=== PATIENT | female | born 1965 | race Caucasian/White ===

== ENCOUNTER → 2016-11-21 | Outpatient (CLI) | payer OTHER ==
--- NOTE | 2016-11-21 13:32 | US ---
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 No increased velocities. No significant stenosis. IMPRESSION: No hemodynamic significant stenosis of the proximal internal carotid arteries bilaterall y by Doppler criteria, an indirect measurement of carotid stenosis
--- NOTE | 2016-11-21 13:39 | CT ---
EXAMINATION TYPE: CT brain wo/w con DATE OF EXAM: 11/21/2016 1:29 PM COMPARISON: NONE HISTORY: Hemispheric Carotid Artery Syndrome CT DLP: 2446 mGycm Automated exposure control for dose reduction was used. CONTRAST: CT scan of the head is performed without and with IV Contrast, patient injected with 100 ml mL of Omn ipaque 300. FINDINGS: Central structures are midline. There is no evidence of hydrocephalus. No acute focal lesion, mass ef fect or midline shift is seen. I do not see evidence of intracranial blood. Following intravenous administration of contrast, I do not see evidence of abnormal enhancement. There've been previous [place] procedures involving both maxillary sinuses. There is minor mucos al thickening involving the left sphenoid sinus and also the ethmoid air cells. The mastoid air cells appear clear. IMPRESSION: 1. NO ACUTE INTRACRANIAL ABNORMALITY. 2. POSTSURGICAL CHANGE. 3. MILD MUCOPERIOSTEAL THICKENING INVOLVING THE LEFT SPHENOID AND ETHMOID AIR CELLS.
--- NOTE | 2016-12-01 10:55 | MM ---
Reason for exam: screening (asymptomatic). Last mammogram was performed 2 years and 3 months ago. History: Family history of premenopausal breast cancer in mother at age 33. Benign US right guided mammotome of the right breast, September 16, 2006. Reductions of both breasts, 2001. Physical Findings: A clinical breast exam by your physician is recommended on an annual basis and results should be correlated with mammographic findings. MG 3D Screening Mammo W/Cad Bilateral CC and MLO view(s) were taken. Prior study comparison: March 21, 2015, mammogram, performed at [facility]. August 28, 2014, bilateral MG screening mammo w CAD. The breast tissue is almost entirely fat. No significant changes when compared with prior studies. ASSESSMENT: Negative, BI-RAD 1 RECOMMENDATION: Routine screening mammogram of both breasts in 1 year.
== END | disposition home or self-care (01) ==
LOC: RADUSMAIN 12:16
PROVIDERS: ATTEND Pediatrics
DX: Z12.31 Encounter for screening mammogram for malignant neoplasm of breast (principal); G45.1 Carotid artery syndrome (hemispheric); Z98.890 Other specified postprocedural states
CPT/HCPCS: 77063; 93880; 70470; G0202; Q9967

== ENCOUNTER 2016-11-28 11:06 | Day surgery (SDC) | payer OTHER ==
[2016-11-26 16:14] VITALS: BMI 32.1
[~2016-11-28 11:06] MED LIST: LACTATED RINGERS 1,000 ML IV SCH
[2016-11-28 12:42] VITALS: TEMP 98
[2016-11-28] MEDS ORDERED: LIDOCAINE 1% 20 ML VIAL (10MG/ML) FOR IV START INTRADERMA ONE (12:52)
[2016-11-28] MEDS ORDERED: PROPOFOL 10 MG/ML 20 ML VIAL IV ONE (13:00)
--- NOTE | 2016-11-28 13:10 | P.PCN ---
Date of Procedure: 11/28/16 Procedure(s) Performed: BRIEF HISTORY: Patient is a 51-year-old pleasant 8 female, scheduled for an elective colonoscopy as a part of screening for colorectal neoplasia. PROCEDURE PERFORMED: Colonoscopy. PREOPERATIVE DIAGNOSIS: Screening for colon cancer. IV sedation per Anesthesia. PROCEDURE: After informed consent was obtained, the patient, was brought into the endoscopy unit. IV sedation was administered by Anesthesia under continuous monitoring. Digital rectal examination was normal. Initially the Olympus CF-160 flexible video colonoscope was then inserted in the rectum, gradually advanced into the cecum without any difficulty. Careful examination was performed as the scope was gradually being withdrawn. Ileocecal valve and the appendiceal orifice were visualized and appeared normal. Prep was excellent. Mucosa of the cecum, ascending colon, transverse colon, descending colon, sigmoid colon, and rectum appeared normal. Retroflexion was performed in the rectum and no lesions were seen. The patient tolerated the procedure well. IMPRESSION: Normal-appearing colon from rectum to cecum with no evidence of colorectal neoplasia. RECOMMENDATIONS: Findings of this examination were discussed with the patient as well as her family. She was advised to have a repeat screening colonoscopy in 10 years.
[2016-11-28] MEDS ORDERED: IV FLUID CONTINUATION 1,000 ML IV ONE (13:14)
[2016-11-28 13:47] VITALS: BP 128/78; PULSE 82; RESP 18
== END 2016-11-28 14:00 | disposition home or self-care (01) ==
LOC: ORWHC2ENDO 11:06
PROVIDERS: ATTEND Internal Medicine Gastroenterology
DX: Z12.11 Encounter for screening for malignant neoplasm of colon (principal); I10 Essential (primary) hypertension; Z79.899 Other long term (current) drug therapy
CPT/HCPCS: 81025; J2704; G0121

== ENCOUNTER → 2017-11-24 | Outpatient (CLI) | payer OTHER ==
--- NOTE | 2017-11-26 12:57 | MM ---
Reason for exam: screening (asymptomatic). Last mammogram was performed 1 year ago. History: Family history of premenopausal breast cancer in mother at age 33. Benign US right guided mammotome of the right breast, September 16, 2006. Reductions of both breasts, 2001. Physical Findings: A clinical breast exam by your physician is recommended on an annual basis and results should be correlated with mammographic findings. MG 3D Screening Mammo W/Cad Bilateral CC and MLO view(s) were taken. Prior study comparison: November 21, 2016, bilateral MG 3d screening mammo w/cad. March 21, 2015, mammogram, performed at [facility]. There are scattered fibroglandular densities. Previous mammotome biopsy in the right breast. Global asymmetry right upper outer quadrant is stable. No significant changes when compared with prior studies. ASSESSMENT: Negative, BI-RAD 1 RECOMMENDATION: Routine screening mammogram of both breasts in 1 year.
== END | disposition home or self-care (01) ==
LOC: RADMAMWWP 13:34
PROVIDERS: ATTEND Obstetrics & Gynecology
DX: Z12.31 Encounter for screening mammogram for malignant neoplasm of breast (principal); Z80.3 Family history of malignant neoplasm of breast
CPT/HCPCS: 77063; 77067

== ENCOUNTER → 2019-01-20 | Outpatient (CLI) | payer OTHER ==
--- NOTE | 2019-01-21 08:57 | MM ---
Reason for exam: screening (asymptomatic). Last mammogram was performed 1 year and 2 months ago. History: Family history of premenopausal breast cancer in mother at age 33. Benign US right guided mammotome of the right breast, September 16, 2006. Reductions of both breasts, 2001. Physical Findings: A clinical breast exam by your physician is recommended on an annual basis and results should be correlated with mammographic findings. MG 3D Screening Mammo W/Cad Bilateral CC and MLO view(s) were taken. Prior study comparison: November 24, 2017, bilateral MG 3d screening mammo w/cad. November 21, 2016, bilateral MG 3d screening mammo w/cad. There are scattered fibroglandular densities. There is no discrete abnormality. No significant changes when compared with prior studies. ASSESSMENT: Negative, BI-RAD 1 RECOMMENDATION: Routine screening mammogram of both breasts in 1 year.
== END | disposition home or self-care (01) ==
LOC: RADMAMWWP 14:23
PROVIDERS: ATTEND Family Medicine
DX: Z12.31 Encounter for screening mammogram for malignant neoplasm of breast (principal)
CPT/HCPCS: 77063; 77067

== ENCOUNTER → 2019-07-01 | Outpatient (CLI) | payer OTHER ==
--- NOTE | 2019-07-01 11:23 | XR ---
EXAMINATION TYPE: XR chest 2V DATE OF EXAM: 07/01/2019 COMPARISON: 10/09/2015 TECHNIQUE: PA and lateral views submitted. HISTORY: Shortness of breath FINDINGS: The lungs are clear and there is no pneumothorax, pleural effusion, or focal pneumonia. Hypertrophi c and degenerative change of the spine. No overt failure. IMPRESSION: 1. No acute process.
== END | disposition home or self-care (01) ==
LOC: RADXRYALE 11:01
PROVIDERS: ATTEND Pediatrics
DX: J45.901 Unspecified asthma with (acute) exacerbation (principal)
CPT/HCPCS: 71046

== ENCOUNTER 2020-02-28 08:52 | Emergency (ER) | payer OTHER ==
[2020-02-28 08:57] VITALS: TEMP 97.8
[2020-02-28] MEDS ORDERED: IPRATROPIUM-ALBUTEROL 3 ML NEB INHALATION STA (09:03)
[2020-02-28] MEDS ORDERED: SODIUM CHLORIDE 0.9% 500 ML 500 ML IV STA (09:03)
[2020-02-28] MEDS ORDERED: methylPREDNISolone SOD SUCCI 125 MG/2 ML VIAL IV STA (09:03)
--- NOTE | 2020-02-28 09:12 | ED ---
SOB HPI - General Chief Complaint: Shortness of Breath Stated Complaint: SOB/asthma Time Seen by Provider: 02/28/20 08:58 Source: patient, RN notes reviewed Mode of arrival: ambulatory Limitations: no limitations - History of Present Illness Initial Comments: This a 54-year-old female presents emergency Department chief complaint of shortness of breath. She's been having increasing symptoms over the last 1 week. She does admit that she has a history of asthma and has been using her inhaler more than usual. She denies fever, chills, productive cough. She states she has a dry hacking cough and mild nasal congestion associated with her seasonal ALLERGIES. Denies any known sick contacts. Denies chest pain or chest tightness. She's had no mental leg pain leg swelling. Patient does admit that she felt like this before with her asthma exacerbations. - Related Data Home Medications Medication Instructions Recorded Confirmed Albuterol Inhaler (Mhu) [Ventolin 1 - 2 puff INHALATION Q6HR PRN 11/26/16 11/28/16 Hfa Inhaler] Fluticasone Nasal [place] [Flonase 2 spr EA NOSTRIL HS 11/26/16 11/28/16 Nasal [place]] Lisinopril [Zestril] 20 mg PO HS 11/26/16 11/28/16 Loratadine [Claritin] 10 mg PO DAILY 11/26/16 11/28/16 Previous Rx's Medication Instructions Recorded Albuterol Nebulized [Ventolin 2.5 mg INHALATION Q4H PRN #50 nebu 02/28/20 Nebulized] predniSONE 50 mg PO DAILY #5 tab 02/28/20 Allergies Allergy/AdvReac Type Severity Reaction Status Date / Time No Known Allergies Allergy Verified 02/28/20 08:57 Review of Systems ROS Statement: Those systems with pertinent positive or pertinent negative responses have been documented in the HPI. ROS Other: All systems not noted in ROS Statement are negative. Past Medical History Past Medical History: Asthma, CVA/TIA, Hypertension Additional Past Medical History / Comment(s): 3 ARTERIES IN HEART ONE IS SMALL, ONE IS LEAKING-CONGENTIAL DEFECT, STATES TIA 2 WEEKS AGO WHEN SHE STOPPED HER BP MEDICATION. History of Any Multi-Drug Resistant Organisms: None Reported Past Surgical History: Adenoidectomy, Breast Surgery, Section, Heart Catheterization, Tubal Ligation Additional Past Surgical History / Comment(s): D & C, X3. BREAST REDUCTION Past Anesthesia/Blood Transfusion Reactions: No Reported Reaction, Motion Sickness Past Psychological History: No Psychological Hx Reported Smoking Status: Former smoker Past Alcohol Use History: Occasional Past Drug Use History: None Reported - Past Family History Mother Family Medical History: Cancer Additional Family Medical History / Comment(s): BREAST CANCER Father Family Medical History: Cancer Additional Family Medical History / Comment(s): LUNG CANCER General Exam Limitations: no limitations General appearance: alert, in no apparent distress Head exam: Present: atraumatic, normocephalic, normal inspection Eye exam: Present: normal appearance, PERRL, EOMI. Absent: scleral icterus, conjunctival injection, periorbital swelling ENT exam: Present: normal exam, normal oropharynx, mucous membranes moist Neck exam: Present: normal inspection, full ROM. Absent: tenderness, meningismus, lymphadenopathy Respiratory exam: Present: respiratory distress (Mild), wheezes (Bilateral throughout). Absent: normal lung sounds bilaterally, rales, rhonchi, stridor, accessory muscle use Cardiovascular Exam: Present: normal rhythm, tachycardia, normal heart sounds. Absent: systolic murmur, diastolic murmur, rubs, gallop, clicks GI/Abdominal exam: Present: soft, normal bowel sounds. Absent: distended, tenderness, guarding, rebound, rigid Extremities exam: Absent: pedal edema Neurological exam: Present: alert, oriented X3 Skin exam: Present: warm, dry, intact, normal color. Absent: rash Course Vital Signs 02/28/20 02/28/20 02/28/20 08:55 09:03 09:16 Temperature 97.8 F Pulse Rate 106 H 91 Respiratory 22 24 22 Rate Blood Pressure 160/66 133/85 O2 Sat by Pulse 97 98 Oximetry 02/28/20 02/28/20 02/28/20 09:19 09:42 10:21 Temperature Pulse Rate 92 94 99 Respiratory Rate Blood Pressure O2 Sat by Pulse Oximetry 02/28/20 10:46 Temperature Pulse Rate 100 Respiratory Rate Blood Pressure O2 Sat by Pulse Oximetry Medical Decision Making - Medical Decision Making 54-year-old female presented for shortness of breath. Patient's shortness breath related to Asthma x-rays negative patient feels greatly improved after mu ltiple breathing treatments, steroids. Patient was comfortable discharged with close follow-up return parameters were discussed. - Lab Data Result diagrams: 02/28/20 09:09 02/28/20 09:09 Lab Results 02/28/20 02/28/20 02/28/20 Range/Units 09:09 09:09 09:09 WBC 6.8 (3.8-10.6) k/uL RBC 4.68 (3.80-5.40) m/uL Hgb 14.6 (11.4-16.0) gm/dL Hct 43.2 (34.0-46.0) % MCV 92.3 (80.0-100.0) fL MCH 31.2 (25.0-35.0) pg MCHC 33.7 (31.0-37.0) g/dL RDW 12.9 (11.5-15.5) % Plt Count 231 (150-450) k/uL Neutrophils % 69 % Lymphocytes % 19 % Monocytes % 5 % Eosinophils % 4 % Basophils % 1 % Neutrophils # 4.7 (1.3-7.7) k/uL Lymphocytes # 1.3 (1.0-4.8) k/uL Monocytes # 0.3 (0-1.0) k/uL Eosinophils # 0.3 (0-0.7) k/uL Basophils # 0.0 (0-0.2) k/uL Sodium 139 (137-145) mmol/L Potassium 3.8 (3.5-5.1) mmol/L Chloride 106 (98-107) mmol/L Carbon Dioxide 22 (22-30) mmol/L Anion Gap 11 mmol/L BUN 14 (7-17) mg/dL Creatinine 0.73 (0.52-1.04) mg/dL Est GFR (CKD-EPI)AfAm >90 (>60 ml/min/1.73 sqM) Est GFR (CKD-EPI)NonAf >90 (>60 ml/min/1.73 sqM) Glucose 115 H (74-99) mg/dL Plasma Lactic Acid Ryan 2.7 H* (0.7-2.0) mmol/L Calcium 9.8 (8.4-10.2) mg/dL Magnesium 1.6 (1.6-2.3) mg/dL Total Bilirubin 0.6 (0.2-1.3) mg/dL AST 28 (14-36) U/L ALT 24 (4-34) U/L Alkaline Phosphatase 78 (38-126) U/L Troponin I (0.000-0.034) ng/mL Total Protein 7.2 (6.3-8.2) g/dL Albumin 4.5 (3.5-5.0) g/dL 02/28/20 Range/Units 09:09 WBC (3.8-10.6) k/uL RBC (3.80-5.40) m/uL Hgb (11.4-16.0) gm/dL Hct (34.0-46.0) % MCV (80.0-100.0) fL MCH (25.0-35.0) pg MCHC (31.0-37.0) g/dL RDW (11.5-15.5) % Plt Count (150-450) k/uL Neutrophils % % Lymphocytes % % Monocytes % % Eosinophils % % Basophils % % Neutrophils # (1.3-7.7) k/uL Lymphocytes # (1.0-4.8) k/uL Monocytes # (0-1.0) k/uL Eosinophils # (0-0.7) k/uL Basophils # (0-0.2) k/uL Sodium (137-145) mmol/L Potassium (3.5-5.1) mmol/L Chloride (98-107) mmol/L Carbon Dioxide (22-30) mmol/L Anion Gap mmol/L BUN (7-17) mg/dL Creatinine (0.52-1.04) mg/dL Est GFR (CKD-EPI)AfAm (>60 ml/min/1.73 sqM) Est GFR (CKD-EPI)NonAf (>60 ml/min/1.73 sqM) Glucose (74-99) mg/dL Plasma Lactic Acid Ryan (0.7-2.0) mmol/L Calcium (8.4-10.2) mg/dL Magnesium (1.6-2.3) mg/dL Total Bilirubin (0.2-1.3) mg/dL AST (14-36) U/L ALT (4-34) U/L Alkaline Phosphatase (38-126) U/L Troponin I <0.012 (0.000-0.034) ng/mL Total Protein (6.3-8.2) g/dL Albumin (3.5-5.0) g/dL Disposition Clinical Impression: Acute asthma exacerbation Disposition: HOME SELF-CARE Condition: Stable Instructions (If sedation given, give patient instructions): Asthma (ED) Additional Instructions: Please return to the Emergency Department if symptoms worsen or any other concerns. Prescriptions: predniSONE 50 mg PO DAILY #5 tab Albuterol Nebulized [Ventolin Nebulized] 2.5 mg INHALATION Q4H PRN #50 nebu PRN Reason: difficulty in breathing Is patient prescribed a controlled substance at d/c from ED?: No Referrals: Maverick Torrez MD [Primary Care Provider] - 1-2 days Time of Disposition: 10:49
[2020-02-28 09:22] LABS: Basophils % (A) 1 %; Eosinophils # (A) 0.3 k/uL (0-0.7); Eosinophils % (A) 4 %; HCT 43.2 % (34.0-46.0); HGB 14.6 gm/dL (11.4-16.0); Lymphocytes # (A) 1.3 k/uL (1.0-4.8); Lymphocytes % (A) 19 %; MCH 31.2 pg (25.0-35.0); MCHC 33.7 g/dL (31.0-37.0); MCV 92.3 fL (80.0-100.0); Mean Platelet Volume 7.9; Monocytes # (A) 0.3 k/uL (0-1.0); Monocytes % (A) 5 %; Neutrophils # (A) 4.7 k/uL (1.3-7.7); Neutrophils % (A) 69 %; Platelet Count 231 k/uL (150-450); RBC 4.68 m/uL (3.80-5.40); RDW 12.9 % (11.5-15.5); WBC 6.8 k/uL (3.8-10.6)
[2020-02-28 09:31] LABS: ALT 24 U/L (4-34); AST 28 U/L (14-36); African American GFR (CKD) >90 (>60 ml/min/1.73 sqM); Albumin 4.5 g/dL (3.5-5.0); Alkaline Phosphatase 78 U/L (38-126); Anion Gap 11 mmol/L; Blood Urea Nitrogen 14 mg/dL (7-17); Calcium 9.8 mg/dL (8.4-10.2); Carbon Dioxide 22 mmol/L (22-30); Chloride 106 mmol/L (98-107); Glucose 115 mg/dL (74-99); Magnesium 1.6 mg/dL (1.6-2.3); Non-African American GFR(CKD) >90 (>60 ml/min/1.73 sqM); Potassium 3.8 mmol/L (3.5-5.1); Sodium 139 mmol/L (137-145); Total Bilirubin 0.6 mg/dL (0.2-1.3); Total Protein 7.2 g/dL (6.3-8.2)
--- NOTE | 2020-02-28 10:05 | XR ---
EXAMINATION TYPE: XR chest 2V DATE OF EXAM: 02/28/2020 COMPARISON: Prior chest x-ray 07/01/2019 HISTORY: Difficulty breathing, shortness of breath TECHNIQUE: Frontal and lateral views of the chest are obtained. FINDINGS: There is no focal air space opacity, pleural effusion, or pneumothorax seen. The cardiac silhouette size is within normal limits. The osseous structures are intact. There are overlying car diac leads. There are overlying artifacts. IMPRESSION: No acute cardiopulmonary process.
[2020-02-28] MEDS ORDERED: ALBUTEROL NEBULIZED 2.5 MG/3 ML INHALATION STA (10:12)
[2020-02-28 11:01] VITALS: BP 138/75; RESP 16
[2020-02-28 11:11] VITALS: PULSE 101
== END 2020-02-28 11:12 | disposition home or self-care (01) ==
LOC: EC 08:52
DX: J45.901 Unspecified asthma with (acute) exacerbation (principal); R09.81 Nasal congestion; I10 Essential (primary) hypertension; Z86.73 Personal history of transient ischemic attack (TIA), and cerebral infarction without residual deficits; Z79.899 Other long term (current) drug therapy; Z95.5 Presence of coronary angioplasty implant and graft; Z87.891 Personal history of nicotine dependence
CPT/HCPCS: 36415; 94640 ×2; 93005; 80053; 83605; 83735; 84484; 85025; 71046; 99285; 96374; 96361; J2930

== ENCOUNTER 2020-05-11 02:35 | Emergency (ER) | payer OTHER ==
[2020-05-11 02:44] VITALS: RESP 18; TEMP 98
[2020-05-11] MEDS ORDERED: PENICILLIN VK 500MG STARTER 4 TAB BTL PO STA (02:59)
--- NOTE | 2020-05-11 03:08 | ED ---
General Adult HPI - General Chief complaint: Shortness of Breath Stated complaint: Difficulty Swallowing Time Seen by Provider: 05/11/20 02:41 Source: patient, EMS Mode of arrival: EMS - History of Present Illness Initial comments: This patient is 54-year-old woman who presents to be evaluated for an episode where she felt like she was not able to breathe. The patient states the symptoms had awakened her. It felt like there was something in her throat. The patient relates that prior to this she had had a couple of days of left mandibular tooth pain and it felt like there was some swelling adjacent to the mandible. She had planned on seeing the dentist and starting antibiotics. She was not having dyspnea when she went to sleep. She woke with an episode like she was choking and that was something in her throat. She states that after waking the symptoms did resolve. She does continue have a little bit of mandibular pain. No fever or chills. No difficulty with speech or swallowing. -: minutes(s) Location: neck Consistency: now resolved Improves with: none Worsens with: none Associated Symptoms: other Treatments Prior to Arrival: none - Related Data Home Medications Medication Instructions Recorded Confirmed Albuterol Inhaler (Mhu) [Ventolin 1 - 2 puff INHALATION Q6HR PRN 11/26/16 11/28/16 Hfa Inhaler] Fluticasone Nasal [place] [Flonase 2 spr EA NOSTRIL HS 11/26/16 11/28/16 Nasal [place]] Loratadine [Claritin] 10 mg PO DAILY 11/26/16 11/28/16 lisinopriL [Zestril] 20 mg PO HS 11/26/16 11/28/16 Previous Rx's Medication Instructions Recorded Albuterol Nebulized [Ventolin 2.5 mg INHALATION Q4H PRN #50 nebu 02/28/20 Nebulized] predniSONE 50 mg PO DAILY #5 tab 02/28/20 Penicillin V Potassium [Pen Vee K] 500 mg PO QID #28 tablet 05/11/20 Allergies Allergy/AdvReac Type Severity Reaction Status Date / Time No Known Allergies Allergy Verified 05/11/20 02:44 Review of Systems ROS Statement: Those systems with pertinent positive or pertinent negative responses have been documented in the HPI. ROS Other: All systems not noted in ROS Statement are negative. Constitutional: Denies: fever, chills Eyes: Denies: eye pain ENT: Reports: dental pain. Denies: ear pain, throat pain, hearing loss, congestion Respiratory: Reports: dyspnea. Denies: cough, wheezes, stridor Cardiovascular: Denies: chest pain, palpitations, orthopnea Gastrointestinal: Denies: abdominal pain, vomiting Skin: Denies: rash Neurological: Denies: headache Past Medical History Past Medical History: Asthma, CVA/TIA, Hypertension Additional Past Medical History / Comment(s): 3 ARTERIES IN HEART ONE IS SMALL, ONE IS LEAKING-CONGENTIAL DEFECT, STATES TIA 2 WEEKS AGO WHEN SHE STOPPED HER BP MEDICATION. History of Any Multi-Drug Resistant Organisms: None Reported Past Surgical History: Adenoidectomy, Breast Surgery, Section, Heart Catheterization, Tubal Ligation Additional Past Surgical History / Comment(s): D & C, X3. BREAST REDUCTION Past Anesthesia/Blood Transfusion Reactions: No Reported Reaction, Motion Sickness Past Psychological History: No Psychological Hx Reported Smoking Status: Former smoker Past Alcohol Use History: Occasional Past Drug Use History: None Reported - Past Family History Mother Family Medical History: Cancer Additional Family Medical History / Comment(s): BREAST CANCER Father Family Medical History: Cancer Additional Family Medical History / Comment(s): LUNG CANCER General Exam General appearance: alert, in no apparent distress Head exam: Present: atraumatic, normocephalic Eye exam: Present: normal appearance. Absent: scleral icterus, conjunctival injection ENT exam: Present: normal oropharynx, other (Mild caries to tooth #18. No palpable abscess. Small amount of soft tissue swelling adjacent to the left mandible. No sublingual or neck fullness or tenderness.) Neck exam: Present: normal inspection, full ROM. Absent: tenderness, meningismus, lymphadenopathy, thyromegaly Respiratory exam: Present: normal lung sounds bilaterally. Absent: respiratory distress, wheezes, rales, rhonchi, stridor, accessory muscle use Cardiovascular Exam: Present: regular rate, normal rhythm, normal heart sounds. Absent: systolic murmur, diastolic murmur, rubs, gallop Neurological exam: Present: alert Skin exam: Present: warm, dry, intact, normal color. Absent: rash Course Vital Signs 05/11/20 05/11/20 02:39 02:45 Temperature 98 F Pulse Rate 86 Respiratory 18 Rate Blood Pressure 165/106 162/88 O2 Sat by Pulse 97 Oximetry Disposition Clinical Impression: Pain, dental Disposition: HOME SELF-CARE Condition: Good Instructions (If sedation given, give patient instructions): Dental Abscess (ED) Prescriptions: Penicillin V Potassium [Pen Vee K] 500 mg PO QID #28 tablet Is patient prescribed a controlled substance at d/c from ED?: No Referrals: Maverick Torrez MD [Primary Care Provider] - 1-2 days
--- NOTE | 2020-05-11 03:33 | XR ---
EXAMINATION TYPE: XR soft tissue neck DATE OF EXAM: 05/11/2020 COMPARISON: NONE HISTORY: Pain. Short of breath. TECHNIQUE: 2 views FINDINGS: Epiglottis appears normal. Subglottic trachea is normal. Prevertebral soft tissues appear n ormal. There is mild degenerative change in the lower cervical spine. IMPRESSION: Negative cervical soft tissue exam.
[2020-05-11 04:45] VITALS: BP 156/72; PULSE 84
== END 2020-05-11 04:44 | disposition home or self-care (01) ==
LOC: EC 02:35
DX: K08.89 Other specified disorders of teeth and supporting structures (principal); J45.909 Unspecified asthma, uncomplicated; I10 Essential (primary) hypertension; Z79.51 Long term (current) use of inhaled steroids; Z79.899 Other long term (current) drug therapy; Z87.891 Personal history of nicotine dependence; Z86.73 Personal history of transient ischemic attack (TIA), and cerebral infarction without residual deficits
CPT/HCPCS: 70360; 99285

== ENCOUNTER → 2020-06-12 | Outpatient (CLI) | payer OTHER ==
--- NOTE | 2020-06-13 11:37 | MM ---
Reason for exam: screening (asymptomatic). Last mammogram was performed 1 year and 5 months ago. History: Family history of premenopausal breast cancer in mother at age 33. Benign US right guided mammotome of the right breast, September 16, 2006. Reductions of both breasts, 2001. Physical Findings: A clinical breast exam by your physician is recommended on an annual basis and results should be correlated with mammographic findings. MG 3D Screening Mammo W/Cad Bilateral CC and MLO view(s) were taken. Prior study comparison: January 20, 2019, bilateral MG 3d screening mammo w/cad. November 24, 2017, bilateral MG 3d screening mammo w/cad. There are scattered fibroglandular densities. There is no discrete abnormality. No significant changes when compared with prior studies. ASSESSMENT: Benign, BI-RAD 2 RECOMMENDATION: Routine screening mammogram of both breasts in 1 year.
== END | disposition home or self-care (01) ==
LOC: RADMAMWWP 07:08
PROVIDERS: ATTEND Family Medicine
DX: Z12.31 Encounter for screening mammogram for malignant neoplasm of breast (principal)
CPT/HCPCS: 77063; 77067

== ENCOUNTER 2021-05-28 10:02 | Emergency (ER) | payer OTHER ==
[2021-05-28 10:12] VITALS: BP 154/85; PULSE 86; RESP 22; TEMP 98.7
--- NOTE | 2021-05-28 11:27 | XR ---
EXAMINATION TYPE: XR chest 2V DATE OF EXAM: 05/28/2021 COMPARISON: 02/28/2020 HISTORY: Chest pain TECHNIQUE: Frontal and lateral views of the chest are obtained. FINDINGS: There is no focal air space opacity. No evidence for pneumothorax. No pleural effusion. The cardiac silhouette size is within normal limits. The osseous structures are grossly intact. IMPRESSION: 1. No acute cardiopulmonary process.
--- NOTE | 2021-05-28 12:23 | ED ---
URI HPI - General Chief Complaint: Upper Respiratory Infection Stated Complaint: ENRIQUE Time Seen by Provider: 05/28/21 12:20 Source: patient, RN notes reviewed Mode of arrival: ambulatory Limitations: no limitations - History of Present Illness Initial Comments: Patient is a 55-year-old female with history of asthma, presenting to emergency Department with complaints of cough, congestion and some mild wheezing for the past 3-4 days. She denies any fevers or chills, no chest pain. 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 She denies any abdominal pain, no nausea or vomiting. She has been using her inhaler and nebulizer treatments at home which have been helping some. She has no further complaints at this time. Upon arrival to the ER, her vitals are stable. - Related Data Home Medications Medication Instructions Recorded Confirmed Albuterol Inhaler (Mhu) [Ventolin 1 - 2 puff INHALATION Q6HR PRN 11/26/16 11/28/16 Hfa Inhaler] Fluticasone Nasal [place] [Flonase 2 spr EA NOSTRIL HS 11/26/16 11/28/16 Nasal [place]] Loratadine [Claritin] 10 mg PO DAILY 11/26/16 11/28/16 lisinopriL [Zestril] 20 mg PO HS 11/26/16 11/28/16 Previous Rx's Medication Instructions Recorded Albuterol Nebulized [Ventolin 2.5 mg INHALATION Q4H PRN #50 nebu 02/28/20 Nebulized] predniSONE 50 mg PO DAILY #5 tab 02/28/20 Penicillin V Potassium [Pen Vee K] 500 mg PO QID #28 tablet 05/11/20 methylPREDNISolone [Medrol Dose 4 mg PO DIRECTED #1 packet 05/28/21 Pack] Allergies Allergy/AdvReac Type Severity Reaction Status Date / Time No Known Allergies Allergy Verified 05/28/21 10:12 Review of Systems ROS Statement: Those systems with pertinent positive or pertinent negative responses have been documented in the HPI. ROS Other: All systems not noted in ROS Statement are negative. Past Medical History Past Medical History: Asthma, CVA/TIA, Hypertension Additional Past Medical History / Comment(s): 3 ARTERIES IN HEART ONE IS SMALL, ONE IS LEAKING-CONGENTIAL DEFECT, STATES TIA 2 WEEKS AGO WHEN SHE STOPPED HER BP MEDICATION. History of Any Multi-Drug Resistant Organisms: None Reported Past Surgical History: Adenoidectomy, Breast Surgery, Section, Heart Catheterization, Tubal Ligation Additional Past Surgical History / Comment(s): D & C, X3. BREAST REDUCTION Past Anesthesia/Blood Transfusion Reactions: No Reported Reaction, Motion Sickness Past Psychological History: No Psychological Hx Reported Smoking Status: Former smoker Past Alcohol Use History: Occasional Past Drug Use History: None Reported - Past Family History Mother Family Medical History: Cancer Additional Family Medical History / Comment(s): BREAST CANCER Father Family Medical History: Cancer Additional Family Medical History / Comment(s): LUNG CANCER General Exam - General Exam Comments Initial Comments: GENERAL: Patient is well-developed and well-nourished. Patient is nontoxic and in no acute distress. HEAD: Atraumatic, normocephalic. EYES: Pupils equal round and reactive to light, extraocular movements intact, sclera anicteric, conjunctiva are normal. Eyelids were unremarkable. ENT: Nares patent, oropharynx clear without exudates. Moist mucous membranes. NECK: Normal range of motion, supple without lymphadenopathy or JVD. LUNGS: Unlabored respirations. Patient has some mild wheezes in the upper villalobos, no rales or rhonchi. HEART: Regular rate and rhythm without murmurs, rubs or gallops. ABDOMEN: Soft, nontender, normoactive bowel sounds. No guarding, no rebound. No masses appreciated. : Deferred MUSCULOSKELETAL: Normal extremities with adequate strength and normal range of motion, no pitting or edema. No clubbing or cyanosis. NEUROLOGICAL: Patient is alert and oriented x 3. SKIN: Warm, Dry, normal turgor, no rashes or lesions noted. Limitations: no limitations Course Vital Signs 05/28/21 10:10 Temperature 98.7 F Pulse Rate 86 Respiratory 22 Rate Blood Pressure 154/85 O2 Sat by Pulse 99 Oximetry Medical Decision Making - Medical Decision Making Patient is a 55-year-old female with history of asthma, presenting with cough and cold-like symptoms for the past 3-4 days. No fevers. Her vitals are stable, her exam reveals some mild wheezes but no other acute findings. Chest x-ray shows no acute findings, rapid Covid is negative. Discussed these findings with the patient. This is most likely viral nature. I will start patient on some steroids. She can follow-up with her primary care. She is agreeable is planning care and is stable for discharge. - Lab Data Lab Results 05/28/21 Range/Units 10:15 Coronavirus (PCR) Not Detected (Not Detectd) Disposition Clinical Impression: Upper respiratory tract infection, Viral infection Disposition: HOME SELF-CARE Condition: Stable Instructions (If sedation given, give patient instructions): Upper Respiratory Infection (ED) Additional Instructions: Please return to the Emergency Department if symptoms worsen or any other concerns. Take steroids as prescribed. Continue with your albuterol inhaler and nebulizer treatments as indicated. Please follow-up with your primary care physician. Prescriptions: methylPREDNISolone [Medrol Dose Pack] 4 mg PO DIRECTED #1 packet Is patient prescribed a controlled substance at d/c from ED?: No Referrals: Maverick Torrez MD [Primary Care Provider] - 1-2 days Time of Disposition: 12:23
== END 2021-05-28 12:51 | disposition home or self-care (01) ==
LOC: EC 10:02
DX: J06.9 Acute upper respiratory infection, unspecified (principal); B34.9 Viral infection, unspecified; J45.909 Unspecified asthma, uncomplicated; I10 Essential (primary) hypertension; Z86.73 Personal history of transient ischemic attack (TIA), and cerebral infarction without residual deficits; Z87.891 Personal history of nicotine dependence; Z79.51 Long term (current) use of inhaled steroids; Z20.822 Contact with and (suspected) exposure to COVID-19
CPT/HCPCS: 71046; 87635; 99285

== ENCOUNTER → 2021-09-18 | Outpatient (CLI) | payer OTHER ==
--- NOTE | 2021-09-19 09:59 | MM ---
Reason for exam: screening (asymptomatic). Last mammogram was performed 1 year and 3 months ago. History: Patient is postmenopausal. Family history of premenopausal breast cancer in mother at age 33. Benign US right guided mammotome of the right breast, September 16, 2006. Reductions of both breasts, 2001. Physical Findings: A clinical breast exam by your physician is recommended on an annual basis and results should be correlated with mammographic findings. MG 3D Screening Mammo W/Cad Bilateral CC, MLO, and XCCL view(s) were taken. Prior study comparison: June 12, 2020, bilateral MG 3d screening mammo w/cad. January 20, 2019, bilateral MG 3d screening mammo w/cad. There are scattered fibroglandular densities. Asymmetric breast tissue in the right breast, near clip, stable. There is no discrete abnormality. ASSESSMENT: Benign, BI-RAD 2 RECOMMENDATION: Routine screening mammogram of both breasts in 1 year.
== END | disposition home or self-care (01) ==
LOC: RADMAMWWP 15:57
PROVIDERS: ATTEND Obstetrics & Gynecology
DX: Z12.31 Encounter for screening mammogram for malignant neoplasm of breast (principal); Z80.3 Family history of malignant neoplasm of breast; Z78.0 Asymptomatic menopausal state
CPT/HCPCS: 77063; 77067

== ENCOUNTER → 2022-09-30 | Outpatient (CLI) | payer OTHER ==
--- NOTE | 2022-10-01 08:21 | MM ---
Reason for Exam: Screening (asymptomatic). Last screening mammogram was performed 12 month(s) ago. Patient History: Menarche at age 13. First Full-Term at age 28. Postmenopausal. 2001, Bilateral Reduction. 09/16/2006, Benign Core Biopsy on the right side. Mother had breast cancer, age 33. Risk Values: Pia 5 year model risk: 2.7%. NCI Lifetime model risk: 18.1%. Prior Study Comparison: 01/20/2019 Bilateral Screening Mammogram, [facility]. 06/12/2020 Bilateral Screening Mammogram, [facility]. 09/18/2021 Bilateral Screening Mammogram, [facility]. Tissue Density: The breast tissue is heterogeneously dense. This may lower the sensitivity of mammography. Findings: Analyzed By CAD. There is no suspicious group of microcalcifications or new suspicious mass in either breast. Overall Assessment: Negative, BI-RAD 1 Management: Screening Mammogram of both breasts in 1 year. A clinical breast exam by your physician is recommended on an annual basis and results should be correlated with mammographic findings. Electronically signed and approved by: Dmitri Yates M.D. Radiologis
== END | disposition home or self-care (01) ==
LOC: RADMAMWWP 07:55
PROVIDERS: ATTEND Obstetrics & Gynecology
DX: Z12.31 Encounter for screening mammogram for malignant neoplasm of breast (principal); Z78.0 Asymptomatic menopausal state; Z80.3 Family history of malignant neoplasm of breast
CPT/HCPCS: 77063; 77067

== ENCOUNTER → 2023-12-03 | Outpatient (CLI) | payer OTHER ==
--- NOTE | 2023-12-03 13:16 | MM ---
Reason for Exam: Screening (asymptomatic). Last mammogram was performed 1 year(s) and 3 month(s) ago. Patient History: Menarche at age 13. First Full-Term at age 28. Postmenopausal. 2001, Bilateral Reduction. 09/16/2006, Benign Core Biopsy on the right side. Mother had breast cancer, age 33. Risk Values: Pia 5 year model risk: 3.0%. NCI Lifetime model risk: 17.3%. Prior Study Comparison: 06/12/2020 Bilateral Screening Mammogram, [facility]. 09/18/2021 Bilateral Screening Mammogram, [facility]. 09/30/2022 Bilateral MG 3D screening mammo w/cad, [facility]. Tissue Density: There are scattered areas of fibroglandular density. Findings: Analyzed By CAD. There is no suspicious group of microcalcifications or new suspicious mass in either breast. Overall Assessment: Negative, BI-RAD 1 Management: Screening Mammogram of both breasts in 1 year. . Patient should continue monthly self-breast exams. A clinical breast exam by your physician is recommended on an annual basis. This exam should not preclude additional follow-up of suspicious palpable abnormalities. Note on Pia scores and lifetime risk: 1. A Pia score greater than 3% is considered moderate risk. If this is the case, consider specialist referral to assess eligibility for a risk reducing agent. 2. If overall lifetime risk for the development of breast cancer is 20% or higher, the patient may qualify for future screening with alternating mammogram and breast MRI. Electronically signed and approved by: Dmitri Yates M.D. Radiologis
== END | disposition home or self-care (01) ==
LOC: RADMAMWWP 08:51
PROVIDERS: ATTEND Obstetrics & Gynecology
DX: Z12.31 Encounter for screening mammogram for malignant neoplasm of breast (principal); Z78.0 Asymptomatic menopausal state; Z80.3 Family history of malignant neoplasm of breast
CPT/HCPCS: 77063; 77067

== ENCOUNTER → 2025-01-05 | Outpatient (CLI) | payer OTHER ==
--- NOTE | 2025-01-06 07:59 | MM ---
Reason for Exam: Screening (asymptomatic). Last mammogram was performed 1 year(s) and 1 month(s) ago. Patient History: Menarche at age 13. First Full-Term at age 28. Postmenopausal. Patient has history of breast feeding. 2001, Bilateral Reduction. 09/16/2006, Benign Core Biopsy on the right side. Mother had breast cancer, age 33. Risk Values: Pia 5 year model risk: 3.1%. NCI Lifetime model risk: 17.0%. Prior Study Comparison: 09/18/2021 Bilateral Screening Mammogram, [facility]. 09/30/2022 Bilateral MG 3D screening mammo w/cad, [facility]. 12/03/2023 Bilateral MG 3D screening mammo w/cad, [facility]. Tissue Density: The breasts are almost entirely fatty. Findings: Analyzed By CAD. Right breast: There is no suspicious group of microcalcifications or new suspicious mass. Left breast: There is no suspicious group of microcalcifications or new suspicious mass. Overall Assessment: Negative, BI-RAD 1 Management: Screening Mammogram of both breasts in [address] [facility] will attempt to contact patient to return for supplemental views and ultrasound if indicated. Patient should continue monthly self-breast exams. A clinical breast exam by your physician is recommended on an annual basis. This exam should not preclude additional follow-up of suspicious palpable abnormalities. Note on Pia scores and lifetime risk: 1. A Pia score greater than 3% is considered moderate risk. If this is the case, consider specialist referral to assess eligibility for a risk reducing agent. 2. If overall lifetime risk for the development of breast cancer is 20% or higher, the patient may qualify for future screening with alternating mammogram and breast MRI. [facility], , 01/06/2025 7:56 AM. Electronically signed and approved by: Frederick Garza DO
== END | disposition home or self-care (01) ==
LOC: RADMAMWWP 16:09
PROVIDERS: ATTEND Pediatrics
DX: Z12.31 Encounter for screening mammogram for malignant neoplasm of breast (principal); R92.313 Mammographic fatty tissue density, bilateral breasts; Z78.0 Asymptomatic menopausal state; Z80.3 Family history of malignant neoplasm of breast
CPT/HCPCS: 77063; 77067